=== PATIENT | female | born 2005 | race Caucasian/White ===

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

== ENCOUNTER 2024-11-09 20:18 | Emergency (ER) | payer SELFPAY ==
--- NOTE | ~2024-11-09 | CT_ITS ---
CT of the Abdomen and Pelvis: Indication: Flank pain, fever Technique: 2.5 mm axial scans were obtained through the abdomen and pelvis following intravenous adm inistration of 100 cc of Omnipaque 350. Dose reduction technique was used on this scan by utilizing a utomated exposure control and iterative reconstruction technique. The dose-length product (DLP) was 2 37.56 mGy-cm. Findings: Scans through the lung bases are unremarkable. The liver, spleen, pancreas, gallbladder, adrenals and right kidney are within normal limits. There i s focal decreased parenchymal enhancement of the lower pole the left kidney with mild adjacent perine phric stranding. No evidence of aortic aneurysm. No lymphadenopathy. No bowel obstruction or bowel wall thickening. There is no evidence to suggest acute appendicitis. Images through the pelvis were performed. Urinary bladder unremarkable. No pelvic mass seen. No ascit es. Impression: Findings compatible with pyelonephritis at the lower pole the left kidney. Reviewed, dictated and finalized at location . Impression: Findings compatible with pyelonephritis at the lower pole the left kidney.
--- OUTSIDE RECORDS SUMMARY | 2024-11-09 20:21 | XMS_ITS | Clinical Summary ---
Author Organization [facility] Address [address] [place] [address] Care Team Providers Care Can Closing Machine Tender Name Role Phone Unavailable Primary Care Provider Unavailabl e Source Comments PLEASE NOTE, if this patient is a minor, it may be UNLAWFUL to discuss sensitive information that is contained in these records (such as FAMILY PLANNING, MENTAL HEALTH or SUBSTANCE ABUSE) with the minor patient's parent or other person without the patient's specific authorization.[facility] Allergies No known active allergies Medications clotrimazole 1 % vaginal cream Place 1 Applicator vaginally nightly at bedtime 45 g 3 Active Active Problems No known active problems Social History Tobacco Use Types Packs/Day Years Used Date Smoking Tobacco: Never Smokeless Tobacco: Never Tobacco Cessation:Counseling Given: No Alcohol Use Standard Drinks/Week Comments Never 0 (1 standard drink = 0.6 oz pur e alcohol) Social Connections Answer Date Recorded Connectedness 0 01/09/2024 Financial Resource Strain Answer Date R ecorded Financial Resource Strain 0 2022 Stress Answer Date Recorded Stress 0 12/03/2022 Physical Activity Answer Date Recorded Physical Activity 0 12/03/2022 Food Insecurity Answer Date Recorded Food 0 01/21/2024 Transportation Needs Answer Date Record ed Transportation 0 12/03/2022 Housing Stability Answer Date Recorded Housing 0 12/03/2022 Safety and Environment Answer Date Norberto rded Safety 0 12/03/2022 Utilities Answer Date Recorded Utilities 0 12/03/2022 Employment Answer Date Recorded Stress 0 01/09/2024 Comments No Sex and Gender Information Value Date Recorded Sex Assigned at Not on file Legal Sex Female 9:54 AM PDT Gender Identity Not on file Sexual Orientation Not on file Last Filed Vital Signs Vital Sign Reading Time Taken Comments Blood Pressure 120/76 12/03/2022 9:14 AM CDT Pulse 104 12/03/2022 9:14 AM CDT Temperature 36.9 C (98.4 F) 12/03/2022 9:14 AM CDT Respiratory Rate 18 12/03/2022 9:14 AM CDT Oxygen Saturation 98% 12/03/2022 9:14 AM CDT Inhaled Oxygen Concentration - - Weight 57.4 kg (126 lb 9.6 oz) 12/03/2022 9:14 A M CDT Height 154.9 cm (5' 1) 12/03/2022 9:14 AM CDT Body Mass Index 23.92 12/03/2022 9:14 AM CDT Plan of Treatment Health Maintenance Due Date Last Done Comments Anxiety Screening 2004 Tobacco Screening 2004 Relationship Safety Screening/Counseling 01/18/2019 Chlamydia Screening 12/04/2023 12/03/2022, Gonorrhea Screening 12/04/2023 12/03/2022 [id number] ( season) 2023 Alcohol and Drug Screen 04/27/2024 Depression Annual Screen 04/27/2024 Imm-Influenza (#1) 2024 03/17/2023, 0 07/19/2020, 04/16/2018, Additional history exists Hypertension Screening (#1) 12/02/2025 Imm-DTaP/Tdap/Td (8 - Td or Tdap) 02/17/2033 02/17/2023, 02/02/2014, 06/28/2009, Additional history exists Imm-Hepatitis B Completed 2004, 04/28, 2004, Additional history exists Imm-MMR Completed 06/28/2009, 02/06/2005 Imm-Varicella Completed 06/28/2009, 02/06/2005 Imm-Hepatitis A Completed 11/28/2013, 11/22/2012 Imm-HPV Completed 08/02/2020, 04/16/2018 HIV Screening Completed 12/03/2022 Hepatitis C Screening Completed 12/03/2022 Procedures Procedure Name Priority Date/Time Associated Diagnosis Comments SURESWAB ADVANCED VAGINITIS PLUS, TMA Routine 12/03/2022 9:00 AM CDT care in second trimester HIV 1/2 AG & AB W/RFLX (4TH GEN) Routine 12/03/2022 8:39 AM CDT ACUTE HEPATITIS PANEL W/RFLX Routine 12/03/2022 8:39 AM CDT from Last 3 Months or Most Recently Relevant to Health Maintenance Results * (ABNORMAL) [facility] ADVANCED VAGINITIS PLUS, TMA (BV/DAYNA/TRICH/GONORRHEA/CHLAMYDIA [id number]) (12/03/2022 9:00 AM CDT) [facility](R) ADV BACTERIAL VAGINOSIS (BV), TMA NEGATIVE NEGATIVE 12/04/2022 12:43 PM CDT [facility] AD[facility] SPECIES [facility](A) NOT DETECTED 2022 5:28 PM CDT [facility] DAYNA GLABRATA NOT DETECTED NOT DETECTED 12/04/2022 5:28 PM CDT [facility] TRICHOMONAS VAGINALIS (TV), TMA NOT DETECTED NOT DETECTED 12/04/2022 5:28 PM CDT [facility] CHLAMYDIA TRACHOMATIS RNA, TMA NOT DETECTED NOT DETECTED 12/04/2022 12:59 PM CDT [facility] NEISSERIA GONORRHOEAE RNA, TMA NOT DETECTED NOT DETECTED 12/04/2022 12:59 PM CDT [facility] Swab Vaginal structure / Unknown 12/03/2022 9:00 AM CDT 12/04/2022 5:48 AM CDT [facility] 12/04/2022 5:29 PM CDT . Dayna species C. albicans, C. tropicalis, C. parapsilosis, and/or C. dubliniensis can be detected, but not differentiated, in the Dayna spp. result. For additional information, please refer to https://education.Simpleshow.SCI Solution/faq/JUS715 (This link is being provided for information/ educational purposes only.) [facility] - MICROBIOLOGY AM BULATORY Final Result [facility] [address] [id number] [facility] [address] [place] [phone] * HIV 1/2 AG & AB W/RFLX (4TH GEN) (12/03/2022 8:39 AM CDT) HIV AG/AB, 4TH GEN NON-REACTI VE NON-REACTI VE 12/04/2022 3:40 PM CDT [facility] 12/03/2022 8:39 AM CDT 12/04/2022 2:15 AM CDT Narrative [facility] - 12/04/2022 3:41 PM CDT HIV-1 antigen and HIV-1/HIV-2 antibodies were not detected. There is no laboratory evidence of HIV infection. . PLEASE NOTE: This information has been disclosed to you from records whose confidentiality may be protected by state law. If your state requires such protection, then the state law prohibits you from making any further disclosure of the information without the specific written consent of the person to whom it pertains, or as otherwise permitted by law. A general authorization for the release of medical or other information is NOT sufficient for this purpose. . For additional information please refer to http://education.BlackLocus/faq/MQJ818 (This link is being provided for informational/ educational purposes only.) . . The performance of this assay has not been clinically validated in patients less than 2 years old. . [facility] - BLOOD DRAW Rosy l Result Performing Organization Address [facility]/ZIP Co de Phone Number [facility] [address] [place] [address] [phone] * ACUTE HEPATITIS PANEL W/RFLX (12/03/2022 8:39 AM CDT) HEPATITIS A IGM ANTIBODY NON-REACTI VE NON-REACTI VE 12/04/2022 3:41 PM CDT [facility] HEPATITIS B CORE IGM ANTIBODY NON-REACTI VE NON-REACTI VE 12/04/2022 3:40 PM CDT [facility] HEPATITIS C ANTIBODY NON-REACTI VE NON-REACTI VE 12/04/2022 3:41 PM CDT [facility] HEPATITIS B SURFACE ANTIGEN NON-REACTI VE NON-REACTI VE 12/04/2022 3:41 PM CDT [facility] 12/03/2022 8:39 AM CDT 12/04/2022 2:15 AM CDT Narrative [facility] - 12/05/2022 9:48 AM CDT . HCV antibody was non-reactive. There is no laboratory evidence of HCV infection. . In most cases, no further action is required. However, if recent HCV exposure is suspected, a test for HCV RNA (test code 69079) is suggested. . For additional information please refer to http://InMyRoom.BlackLocus/faq/ZEZ10f3 (This link is being provided for informational/ educational purposes only.) . . For additional information, please refer to http://InMyRoom.BlackLocus/faq/CHN823 (This link is being provided for informational/ educational purposes only.) . . For additional information, please refer to http://InMyRoom.Simpleshow.SCI Solution/faq/PNY412 (This link is being provided for informational/ educational purposes only.) . [facility] - BLOOD DRAW Edit ed Result - Final [facility] [address] [place] [address] [facility] [address] [place] [address] from Last 3 Months or Most Recently Relevant to Health Maintenance
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
--- OUTSIDE RECORDS SUMMARY | 2024-11-09 20:21 | XMS_ITS | Clinical Summary ---
Author Organization [facility] Address [address] [place] [address] Care Team Providers Care Pie Icer Machine Name Role Phone Unknown, Notinfile Unavailable Unavailable Jbo Lane MD Unavailable [phone] Elchayito-Domitila Kennedy MD Unavailable [phone] No, Physician Primary Care Provider [phone] Allergies No known active allergies Medications albuterol HFA (PROVENTIL HFA,VENTOLIN HFA,PROAIR HFA) 90 mcg/actuation inhaler Inhale 2 puffs every 6 (six) hours as needed for wheezing or shortness of breath 1 Inhaler 1 Active vit 54-apxs-wsmtj-d truong 27mg iron- 800 mcg-250 mg capsule [...] # Disposition: Follow up task sent to [facility] scheduling pool. Desires discharge home today. Benign [...] q2 weeks - Pediatric surgery consultation - medicine consultation - Delivery at [facility] Supervision of high-risk , unspecified trimester 2023 Overview (05/04/2023): [facility] RN: Lexi Gonzalez [x] Full [facility] Care; [x] Blue Team Referring Provider: Eric Tavares (never seen, only anatomy scan); had 1 OB visit in [place]- care everywhere [x] Dating Criteria: ZAN= 2T [...] CPAM, FGR [x] CBC/1hr gtt at 24-28wks: 10.831.1, 1hr GTT 76 [x] Flu Shot (Dec-Mar): [...] pill [x] Method of feeding: breast [x] Toolroom Helper: handouts provided [x] PP Depression Discussed: High risk teen in second trimester Anxiety and depression 07/05/2020 Overview (01/14/2023): History of counseling, did not care for the therapist Stopped medication in 2021 Denies history of SI EPDS on 01/13 = 0 Assessment & Plan (07/06/2020 10:31 PM BODY COMPONENT ENGINEER): - continue home fluoxetine Assessment & Plan (07/05/2020 1:19 AM BODY COMPONENT ENGINEER): - continue home fluoxetine Rumination disorder 07/04/2020 Overview (07/05/2020): Added automatically from request for surgery [id number] 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 Menometrorrhagia 04/16/2018 Resolved Problems Problem Noted Date Diagnosed Date Resolved Date growth restriction antepartum 2023 2023 Overview (2023): EFW 8%ile with normal dopplers on 01/13 Plan Abdominal pain 07/05/2020 01/07/2023 Assessment & Plan (07/06/2020 11:27 PM BODY COMPONENT ENGINEER): - regular diet, mIVF - ODT zofran PRN for nausea - Tylenol, Benadryl, NS bolus for pain - Consider re-initiating bowel regimen when vomiting subsides Assessment & Plan (07/05/2020 1:19 AM BODY COMPONENT ENGINEER): - NPO (except meds), mIVF - IV zofran PRN for nausea - oral tylenol, IV benadryl, NS bolus for pain - start oral Prevacid daily - follow up celiac labs Encounters Date Type Department Care Team Description 10/29/2024 10:41 PM CDT - 10/30/2024 12:40 AM CDT Emergency [facility] Emergency Department [address] [place] [address] Discharge Disposition: Left without being seen from Last 3 Months Immunizations Immunization Administration Dates Next Due DTaP [...] 05/16/2023(Deferred: No longer needed - varicella immune),06/28/2009,02/06/2005 Surgical History Surgery Date Site/Laterality Comments CYST REMOVAL EXTERNAL EAR CANAL LESION EXCISION 12/09/2018 Right Benign Neoplasm excision Medical History Medical History Date Comments Seasonal allergies Depression with anxiety Family History Medical History Relation Name Comments Irritable bowel syndrome Mother Crohn's disease Other Relation Name Status Comments Mother Other Social History Tobacco Use Types Packs/Day Years [...] often do you attend chur ch or quaker services? Never 05/15/2023 Do you belong to any clubs o r organizations such as jewish groups, unions, fraternal or athletic groups, or [...] place to sleep or slept in a group home (including now)? No 05/15/2023 Burnham Depression Scale Answer Date Recorded [place] Depression Scale Total 6 06/03/2023 The thought [...] on file Legal Sex Female 3:59 AM BODY COMPONENT ENGINEER Gender Identity Female 04/28/2023 10:40 AM BODY COMPONENT ENGINEER Sexual Orientation Not on file Obstetrics History Para Term AB IAB SAB Ectopic Multiple Livin g Live Births 2 1 1 0 1 1 0 0 0 1 1 Date Outcome GA Total Labor Labor/2nd/3rd Weight Sex Type Anes PTL Sana A1 A5 Name Clin IAB 8w0 d 2023 Term 39w 0d 0h 37m 0h 29m/0h 08m 3.03 kg (6 lb 10.9 oz) M Vagina l Epidur al N Livin g 8 9 Tayli n Towel l Samia Malone MD Complications:None Delivery Location:[facility] ([facility]) Last Filed Vital Signs Vital Sign Reading [...] 07/26/2023 11:41 AM CDT Plan of Treatment Health Maintenance Due Date Last Done Comments Meningococcal B Vaccine (2 o f 2 - Bexsero SCDM 2-dose series) 02/01/2021 08/02/2020 Chlamydia and Gonorrhea (GC/ CT) Screening 07/05/2021 07/05/2020 Regular Well Visit/Exam 18-64 01/18/2022 Depression Screening 06/03/2024 06/03/2023 Influenza Vaccine (#1) 2024 3, 07/19/2020, 04/16/2018, Additional history exists DTaP/Tdap/Td Vaccine (8 - Td or Tdap) 02/17/2033 02/17/2023, 02/02/2014, 06/28/2009, Additional history exists Hepatitis B Screening Completed 2004 , 2004, 2004, Additional history exists Pneumococcal vaccine <65 Completed 005, 02/06/2005, 2004, Additional history exists Varicella Vaccines Completed 06/28/2009, 02/06/2005 HPV Vaccines Completed 08/02/2020, 04/16/2018 Meningococcal Vaccine Completed 08/02/2020 , 11/06/2015, 11/06/2015 Hepatitis C Screening Completed 12/04/2022 Procedures Procedure Name Priority Date/Time Associated Diagnosis Comments HEPATITIS C ANTIBODY Routine 12/04/2022 N. GONORRHOEAE/C. TRACHOMATIS AMPLIFICATION Routine 07/05/2020 1:32 AM BODY COMPONENT ENGINEER from Last 3 Months or Most Recently Relevant to Health Maintenance Results * Hepatitis C antibody Blood (12/04/2022) SCRIBED HCV ab Nonreactive Blood Aco Historical Provider MD LAB MICROBIOLOGY - [facility] ORDERABLES Final Result * N. gonorrhoeae/C. trachomatis Amplification Urine (07/05/2020 1:32 AM BODY COMPONENT ENGINEER) C. trachomatis Not Detected Not Detected [facility] Comment:Testing performed by : [facility], [address] [facility], [place]., [address] N. gonorrhoeae Not Detected Not Detected [facility] Comment: Interpretive Data Testing performed by the [facility]. This assay detects Chlamydia trachomatis and [...] last revised on 2018. Testing performed by: [facility], [address] [facility], [place]., [address] Urine (None) 07/05/2020 1:32 AM BODY COMPONENT ENGINEER 07/05/2020 2:46 AM BODY COMPONENT ENGINEER No Gary MD LAB MICROBIOLOGY - GEN ERAL ORDERABLES Final Result [facility] Department [place] [address] from Last 3 Months or Most Recently Relevant to Health Maintenance Insurance [address] [place] [id number] [facility] Member Subscriber Plan / Payer (Ef fective 2023-Present) Name:Gabriela Garber Marylu Relation to Subscriber:Self Name:Gabriela Garber Marylu Payer ID:[id number] (NAIC) Group ID:Not on file Type:MEDICAID RISK OTHER Address: [facility] [id number] [place] [id number] [facility] AETNA [facility] IDPA Advance Directives For more information, please contact: [phone] * Full Code (Latest Code Status on [...] 2:17 AM 07/06/2020 1:32 AM Care Teams Pie Icer Machine Relationship Specialty Start Date End Date No, Physician PCP - General 04/30/23 Unknown, Notinfile 08/18/[address] MD Referring Physician Pediatrics 12/30/17 Domitila Crenshaw MD [address] [place] [id number] Referring Physician Family Medicine 07/04/20
--- OUTSIDE RECORDS SUMMARY | 2024-11-09 20:21 | XMS_ITS | Clinical Summary ---
Author Organization [facility] Address [address] [place] [address] Care Team Providers Care Flatwork Supervisor Name Role Phone Unavailable Primary Care Provider Unavailabl e Source Comments [facility],non-owned Affiliates and Associated Physician Practices is amultiple site organization consisting of ambulatory clinics and hospital sitesin [place], [place], [place]. This disclosure is being madepursuant to the Care Everywhere program and may not contain all information available regarding this patient. Last updated 18.[facility] [place] Allergies No known active allergies Medications * Be aware that medications may not be up to date on this document. Alwaysverify current medications with the patient. No known medications Active Problems No known active problems Social History Tobacco Use Types Packs/Day Years Used Date Smoking Tobacco: Passive Smo ke Exposure - Never Smoker Smokeless Tobacco: Never Alcohol Use Standard Drinks/Week Comments No 0 (1 standard drink = 0.6 oz pur e alcohol) Comments Unknown Sex and Gender Information Value Date Recorded Sex Assigned at Not on file Legal Sex Female 2:48 PM CARD LACER Gender Identity Not on file Sexual Orientation Not on file Last Filed Vital Signs Vital Sign Reading Time Taken Comments Blood Pressure 111/67 05/21/2024 3:39 AM CARD LACER Pulse 119 05/21/2024 3:38 AM CARD LACER Temperature 36.7 C (98.1 F) 05/21/2024 3:38 AM CARD LACER Respiratory Rate - - Oxygen Saturation 96% 05/21/2024 3:38 AM CARD LACER Inhaled Oxygen Concentration - - Weight 64.4 kg (142 lb) 05/09/2018 3:54 PM CARD LACER Height 158.8 cm (5' 2.5) 05/09/2018 3:54 PM CARD LACER Body Mass Index 25.56 05/09/2018 3:54 PM CARD LACER Plan of Treatment Health Maintenance Due Date Last Done Comments HPV VACCINE (1 - 3-dose series) 01/18/2019 MENINGOCOCCAL (Group B) VACCINE SHARED DECISION-MAKING (1 of 2 - Standard) 2020 DTAP/TDAP/TD VACCINES (1 - Tdap) 01/18/2023 HEPATITIS B VACCINE (1 of 3 - 19+ 3-dose series) 01/18/2023 COVID-19 VACCINE (1 - season) 2023 DEPRESSION SCREENING 04/27/2024 CHLAMYDIA/GONORRHEA SCREENING 11/29/2024 11/30/2023 INFLUENZA VACCINE (#1) 2024 , 07/19/2020, 04/16/2018, Additional history exists ZOSTER VACCINE (1 of 2) 01/18/2054 HEPATITIS C SCREENING Completed 12/03/2022 HIV SCREENING Completed 12/03/2022 HIB VACCINE Aged Out No longer eligi ble based on patient's age to complete this topic MENINGOCOCCAL GROUPS A/C/Y/W VACCINE Aged Out No longer eligible based on patient's age to complete this topic PNEUMOCOCCAL VACCINE Aged Out No long er eligible based on patient's age to complete this topic Insurance [facility] [place] [address] MEDICAID [facility] ANTHEM
--- OUTSIDE RECORDS SUMMARY | 2024-11-09 20:21 | XMS_ITS | Clinical Summary ---
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 Family History Medical History Relation Name Comments No Known Problems Father No Known Problems Mother Relation Name Status Comments Father Alive Mother Alive Social History Tobacco Use Types Packs/Day Years Used Date Smoking Tobacco: Never Smokeless Tobacco: Never Alcohol Use Standard Drinks/Week Comments Never 0 (1 standard drink = 0.6 oz pur e alcohol) AUDIT-C Answer Date Recorded Frequency of Alcohol Consumption Never 10/07/2018 Average Number of Drinks Not on file 019 Frequency of Binge Drinking Not on file 09/25 Comments Unknown Sex and Gender Information Value Date Recorded Sex Assigned at Not on file Legal Sex Female 12:09 AM CDT Gender Identity Not on file Sexual Orientation Not on file Last Filed Vital Signs Vital Sign Reading Time Taken Comments Blood Pressure 103/75 07/31/2022 7:22 PM CDT Pulse 96 07/31/2022 7:22 PM CDT Temperature 36.7 C (98.1 F) 07/31/2022 7:22 PM CDT Respiratory Rate 18 07/31/2022 7:22 PM CDT Oxygen Saturation 100% 07/31/2022 7:22 PM CDT Inhaled Oxygen Concentration - - Weight 54.4 kg (120 lb) 07/31/2022 7:22 PM CDT Height 157.5 cm (5' 2) 07/31/2022 7:22 PM CDT Body Mass Index 21.95 07/31/2022 7:22 PM CDT Plan of Treatment Health Maintenance Due Date Last Done Comments Hepatitis C Virus (HCV) Screening 2004 Meningococcal B Immunization (2 of 2 - Bexsero SCDM 2-dose series) 02/01/2021 08/02/2020 SARS-COV-2 Immunization ( - season) 2023 Influenza Immunization (#1) 12/26/202403/28, 03/30/2017, 03/30/2017, Additional history exists Respiratory Syncytial Virus (RSV) Immunization (Adult) (1 - 1-dose 75+ series) 01/18/2079 Hepatitis B Immunization Completed 005, 2004, 2004, Additional history exists Pneumococcal Immunization Combined Aged Out 02/06/2005, 02/06/2005, 2004, Additional history exists No longer eligible based on patient's age to complete this topic Measles Mumps Rubella (MMR) Immunization Discontinued 06/28/2009, 02/06/2005 Polio (IPV) Immunization Discontinued 010, 06/28/2009, 2004, Additional history exists Varicella Immunization Discontinued 06/28/2009, 2004 Hepatitis A Immunization Discontinued 014, 11/28/2013, 11/22/2012, Additional history exists DTaP/Tdap/Td Immunization Discontinued 2013, 06/28/2009, 06/28/2009, Additional history exists TdaP Immunization Completed 02/02/2014 Human Papillomavirus (HPV) Immunization Completed 08/02/2020, 04/16/2018 Meningococcal Immunization (ACWY) Completed 08/02/2020, 11/06/2015, 11/06/2015 Rotavirus Immunization Aged Out No lo nger eligible based on patient's age to complete this topic Care Teams Geriatric Case Manager Relationship Specialty Start Date End Date Provider, None [place] PCP - General 08/22/21
[2024-11-09 20:36] VITALS: BP 91/65; PULSE 106; RESP 17; TEMP 39; O2SAT 100
[2024-11-09 22:33] VITALS: TEMP 38.7
--- NOTE | 2024-11-10 01:02 | PC.NURSE ---
Pt presents to ED c/o 01/04 throbbing headache, and elevated temp, onset 6pm. Pt states she took tylenol 1000 at 1800 yesterday with no relief. Pt placed on cardiac rn and cont. pulse oximeter. Pt temp 100.6 oral, and slightly tachycardiac
[2024-11-10 01:04] VITALS: BP 123/68; PULSE 94; RESP 13; TEMP 38.1; O2SAT 100
--- OUTSIDE RECORDS SUMMARY | 2024-11-10 01:30 | XMS_ITS | Clinical Summary ---
Author Organization [facility] Address [address] [place] [address] Care Team Providers Care Security Architect Name Role Phone Unknown, Notinfile Unavailable Unavailable Job Lane MD Unavailable [phone] Elchayito-Domitila Kennedy MD Unavailable [phone] No, Physician Primary Care Provider [phone] Allergies No known active allergies Medications albuterol HFA (PROVENTIL HFA,VENTOLIN HFA,PROAIR HFA) 90 mcg/actuation inhaler Inhale 2 puffs every 6 (six) hours as needed for wheezing or shortness of breath 1 Inhaler 1 Active vit 40-dqep-cqiug-d truong 27mg iron- 800 mcg-250 mg capsule [...] # Disposition: Follow up task sent to [facility] scheduling pool. Desires discharge home today. [...] consultation - medicine consultation - Delivery at [facility] Supervision of high-risk , unspecified trimester 2023 Overview (05/04/2023): [facility] RN: Lexi Gonzalez [x] Full [facility] Care; [x] Blue Team Referring Provider: [...] pill [x] Method of feeding: breast [x] Cloth Packer: handouts provided [x] PP Depression Discussed: High risk teen in second trimester Anxiety and depression 07/05/2020 Overview (01/14/2023): History of counseling, did not care for the therapist Stopped medication in 2021 Denies history of SI EPDS on 01/13 = 0 Assessment & Plan (07/06/2020 10:31 PM FRONT DESK TEAM MEMBER): - continue home fluoxetine Assessment & Plan (07/05/2020 1:19 AM FRONT DESK TEAM MEMBER): - continue home fluoxetine Rumination disorder 07/04/2020 Overview (07/05/2020): Added automatically from request for surgery [id number] 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 Menometrorrhagia 04/16/2018 Resolved Problems Problem Noted Date Diagnosed Date Resolved Date growth restriction antepartum 2023 2023 Overview (2023): EFW 8%ile with normal dopplers on 01/13 Plan Abdominal pain 07/05/2020 01/07/2023 Assessment & Plan (07/06/2020 11:27 PM FRONT DESK TEAM MEMBER): - regular diet, mIVF - ODT zofran PRN for nausea - Tylenol, Benadryl, NS bolus for pain - Consider re-initiating bowel regimen when vomiting subsides Assessment & Plan (07/05/2020 1:19 AM FRONT DESK TEAM MEMBER): - NPO (except meds), mIVF - IV zofran PRN for nausea - oral tylenol, IV benadryl, NS bolus for pain - start oral Prevacid daily - follow up celiac labs Encounters Date Type Department Care Team Description 10/29/2024 10:41 PM CDT - 10/30/2024 12:40 AM CDT Emergency [facility] Emergency Department [address] [place] [address] Discharge Disposition: Left without being seen from [...] often do you attend chur ch or roman catholic services? Never 05/15/2023 Do you belong to any clubs o r organizations such as shinto groups, unions, fraternal or athletic groups, or [...] place to sleep or slept in a intermediate (including now)? No 05/15/2023 [place] Depression Scale Answer Date Recorded [place] Depression Scale Total 6 06/03/2023 The thought [...] on file Legal Sex Female 3:59 AM FRONT DESK TEAM MEMBER Gender Identity Female 04/28/2023 10:40 AM FRONT DESK TEAM MEMBER Sexual Orientation Not on file Obstetrics History [...] Towel l Samia Malone MD Complications:None Delivery Location:[facility] C ampus ([facility] 58LD) Last Filed Vital Signs Vital Sign [...] GONORRHOEAE/C. TRACHOMATIS AMPLIFICATION Routine 07/05/2020 1:32 AM FRONT DESK TEAM MEMBER from Last 3 Months or Most Recently Relevant to Health Maintenance Results * Hepatitis C antibody Blood (12/04/2022) SCRIBED HCV ab Nonreactive Blood Aco Historical Provider MD LAB MICROBIOLOGY - [facility] ORDERABLES Final Result * N. gonorrhoeae/C. trachomatis Amplification Urine (07/05/2020 1:32 AM FRONT DESK TEAM MEMBER) C. trachomatis Not Detected Not Detected [facility] Comment:Testing performed by : [facility], [address] [facility] [place] [facility], [place]., [address] N. gonorrhoeae Not Detected Not Detected [facility] Comment: Interpretive Data Testing performed by the [facility]. This assay detects Chlamydia trachomatis and [...] last revised on 2018. Testing performed by: [facility], [address] [facility] [place] [facility], [place]., [address] Urine (None) 07/05/2020 1:32 AM FRONT DESK TEAM MEMBER 07/05/2020 2:46 AM FRONT DESK TEAM MEMBER No Gary MD LAB MICROBIOLOGY - [facility] ORDERABLES Final Result [facility] Department [place] [address] from Last 3 Months or Most Recently Relevant to Health Maintenance Insurance [address] [place] [address] [facility] Member Subscriber Plan / Payer (Ef fective 2023-Present) Name:Gabreila Garber Marylu Relation to Subscriber:Self Name:Gabriela Garber Marylu Payer ID:[id number] (NAIC) Group ID:Not on file Type:MEDICAID RISK OTHER Address: [facility] [id number] [place] [address] [facility] AETNA [facility] IDPA Advance Directives For more information, please contact: [phone] * Full Code (Latest Code Status on [...] 2:17 AM 07/06/2020 1:32 AM Care Teams Security Architect Relationship Specialty Start Date End Date No, Physician PCP - General 04/30/23 Unknown, Notinfile 08/18/[address] MD Referring Physician Pediatrics 12/30/17 Domitila Crenshaw MD [address] [place] [id number] Referring Physician Family Medicine 07/04/20
--- OUTSIDE RECORDS SUMMARY | 2024-11-10 01:30 | XMS_ITS | Clinical Summary ---
Author Organization [facility] Address [address] [place] [address] Care Team Providers Care Dynamite Packing Machine Operator Name Role Phone Unavailable Primary Care Provider Unavailabl e Source Comments [facility],non-owned Affiliates and Associated Physician Practices is amultiple site organization consisting of ambulatory clinics and hospital sitesin [place], [place], [place] and [place]. This disclosure is being madepursuant to the Care Everywhere program and may not contain all information available regarding this patient. Last updated 18.[facility] [employer] Allergies No known active allergies Medications * [...] on file Legal Sex Female 2:48 PM CONSUMER LOAN UNDERWRITER Gender Identity Not on file Sexual Orientation Not on file Last Filed Vital Signs Vital Sign Reading Time Taken Comments Blood Pressure 111/67 05/21/2024 3:39 AM CONSUMER LOAN UNDERWRITER Pulse 119 05/21/2024 3:38 AM CONSUMER LOAN UNDERWRITER Temperature 36.7 C (98.1 F) 05/21/2024 3:38 AM CONSUMER LOAN UNDERWRITER Respiratory Rate - - Oxygen Saturation 96% 05/21/2024 3:38 AM CONSUMER LOAN UNDERWRITER Inhaled Oxygen Concentration - - Weight 64.4 kg (142 lb) 05/09/2018 3:54 PM CONSUMER LOAN UNDERWRITER Height 158.8 cm (5' 2.5) 05/09/2018 3:54 PM CONSUMER LOAN UNDERWRITER Body Mass Index 25.56 05/09/2018 3:54 PM CONSUMER LOAN UNDERWRITER Plan of Treatment Health Maintenance Due Date [...] patient's age to complete this topic Insurance [facility] [place] [address] [place] [address] [facility] ANTHEM
--- OUTSIDE RECORDS SUMMARY | 2024-11-10 01:30 | XMS_ITS | Clinical Summary ---
Author Organization [facility] Address [address] [place] [address] Phone Care Team Providers Care Fluid Dynamicist Name Role Phone Provider, None Primary Care [...] age to complete this topic Care Teams Fluid Dynamicist Relationship Specialty Start Date End Date Provider, None [place] PCP - General 08/22/21
--- OUTSIDE RECORDS SUMMARY | 2024-11-10 01:30 | XMS_ITS | Referral Summary ---
Author Organization [facility] Address [address] [place] [address] Care Team Providers Care Channel Executive Name Role Phone Unknown, Notinfile Unavailable Unavailable Job Lane MD Unavailable Domitila Crenshaw MD Unavailable [phone] No, Physician Primary Care Provider Encounters Date Type Department Care Team Description 10/29/2024 10:41 PM CDT - 10/30/2024 12:40 AM CDT Emergency [facility] Emergency Department [address] [place] [address] Discharge Disposition: Left without being seen from Last 3 Months Allergies No known active allergies Medications albuterol HFA (PROVENTIL HFA,VENTOLIN HFA,PROAIR HFA) 90 mcg/actuation inhaler Inhale 2 puffs every 6 (six) hours as needed for wheezing or shortness of breath 1 Inhaler 1 Active vit 83-nlau-mzsol-d truong 27mg iron- 800 mcg-250 mg capsule [...] # Disposition: Follow up task sent to [facility] scheduling pool. Desires discharge home today. [...] q2 weeks - Pediatric surgery consultation - Tad medicine consultation - Delivery at [facility] Supervision of high-risk , unspecified trimester 2023 Overview (05/04/2023): [facility] RN: Lexi Gonzalez [x] Full [facility] Care; [x] Blue Team Referring Provider: Eric Tavares (never seen, only anatomy scan); had 1 OB visit in [place]- care everywhere [x] Dating Criteria: ZAN= 2T [...] pill [x] Method of feeding: breast [x] Fisheries Inspector: handouts provided [x] PP Depression Discussed: High risk teen in second trimester Anxiety and depression 07/05/2020 Overview (01/14/2023): History of counseling, did not care for the therapist Stopped medication in 2021 Denies history of SI EPDS on 01/13 = 0 Assessment & Plan (07/06/2020 10:31 PM FIRE RANGER): - continue home fluoxetine Assessment & Plan (07/05/2020 1:19 AM FIRE RANGER): - continue home fluoxetine Rumination disorder 07/04/2020 Overview (07/05/2020): Added automatically from request for surgery [id number] 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 Never 05/15/2023 Do you belong to any clubs o r organizations such as druze groups, unions, fraternal or athletic groups, or [...] place to sleep or slept in a fci (including now)? No 05/15/2023 [place] Depression Scale Answer Date Recorded [place] Depression Scale Total 6 06/03/2023 The thought [...] on file Legal Sex Female 3:59 AM FIRE RANGER Gender Identity Female 04/28/2023 10:40 AM FIRE RANGER Sexual Orientation Not on file Last Filed [...] GONORRHOEAE/C. TRACHOMATIS AMPLIFICATION Routine 07/05/2020 1:32 AM FIRE RANGER from Last 3 Months or Most Recently Relevant to Health Maintenance Results * Hepatitis C antibody Blood (12/04/2022) SCRIBED HCV ab Nonreactive Blood Aco Historical Provider LAB MICROBIOLOGY - [facility] ORDERABLES Final Result * N. gonorrhoeae/C. trachomatis Amplification Urine (07/05/2020 1:32 AM FIRE RANGER) C. trachomatis Not Detected Not Detected [facility] Comment:Testing performed by : [facility], [address] [facility] [place]., [address] N. gonorrhoeae Not Detected Not Detected [facility] Comment: Interpretive Data Testing performed by the [facility]. This assay detects Chlamydia trachomatis and [...] last revised on 2018. Testing performed by: [facility], [address] [place]., [address] Urine (None) 07/05/2020 1:32 AM FIRE RANGER 07/05/2020 2:46 AM FIRE RANGER us No Gary MD LAB MICROBIOLOGY - GEN ERAL ORDERABLES Final Result [facility] Department [place] [address] from Last 3 Months or Most Recently Relevant to Health Maintenance Insurance [address] [place] [address] [facility] [place] [address] [place] [address] [employer]ETNA [facility]TER [facility] AETNA [employer]TER [facility] [place] Advance Directives For more information, please contact: [phone] * Full Code (Latest Code Status on [...] 2:17 AM 07/06/2020 1:32 AM Care Teams Channel Executive Relationship Specialty Start Date End Date No, Physician PCP - General 04/30/23 Unknown, Notinfile 08/18/[address] MD Referring Physician Pediatrics 12/30/17 Domitila Crenshaw MD [address] [place] [id number] Referring Physician Family Medicine 07/04/20
--- OUTSIDE RECORDS SUMMARY | 2024-11-10 01:30 | XMS_ITS | Clinical Summary ---
Author Organization [facility] [address] Address [address] [place] [address] Care Team Providers Care Bait Maker Name Role Phone Unavailable Primary Care Provider Unavailabl e Allergies No known active allergies Medications fluticasone propionate (FLONASE) 50 mcg/spray [place], Suspension nasal inhaler Administer 2 Sprays in each nostril daily. 16 Gram 1 9 Active cetirizine (ZyrTEC) 10 mg tablet Take 1 Tablet (10 mg) by mouth daily. 30 Tablet 9 Active doxylamine (Sleep Aid, Doxylamine,) 25 mg Tablet Take 0.5 Tablets (12.5 mg) by mouth nightly as needed for sleep. 30 Tablet 3 04/16/2023 2:52 PM RN SUPPORT SERVICES 3 Active metroNIDAZOLE (FLAGYL) 500 mg tablet Take 1 tablet (500 mg total) by mouth 2 (two) times a day for 7 days 14 Tablet 06/03/2023 4:00 PM RN SUPPORT SERVICES 4 Active nitrofurantoin (Macrobid) 100 mg capsule Take 1 Capsule (100 mg) by mouth 2 times daily. 14 Capsule 06/29/2023 10:18 AM RN SUPPORT SERVICES 4 Active Active Problems Problem Noted Date Diagnosed Date Menometrorrhagia 04/16/2018 Immunizations Immunization Administration Dates Next Due (ADACEL/BOOSTRIX)(10 YR UP) TDAP VACCINE, 0.5ML, IM 02/02/2014 (GARDASIL 9)(9-45 YRS) HUMAN PAPILLOMAVIRUS VACCINE, TYPES 6, 11, 16, 18, 31, 33, 45, 52, 58, NONAVALENT (9VHPV), 2 OR 3 DOSE, IM 04/16/2018 (INFANRIX)(6 WKS-6 YRS) DIPT HERIA, TETANUS TOXOIDS, AND ACCELLULAR PERTUSSIS VACCINE (DTAP), 0.5 ML IM 06/28/2009,09/11/2005,2004,05/21,2004 (IPOL)(6 WKS AND UP) POLIOVI GENE VACCINE, INACTIVATED (IPV), 3 DOSE, SUBCUT OR IM 06/28/2009,2004,2004,03/26 (M-M-R II/PRIORIX)(12 MO UP) MEASLES, MUMPS AND RUBELLA VIRUS VACCINE, 0.5 ML IM/SUBCUT 06/28/2009,02/06/2005 (VARIVAX)(12 MOS UP)VARICELL A VIRUS VACCINE (PF) 0.5 ML, SUB CUT 06/28/2009,02/06/2005 HIB, Unspecified Formulation 09/11/2005, 2004,2004,03/26 Hepatitis A Vaccine 11/28/2013,11/22/2012 Hepatitis B Vaccine 2004, 5,2004,01/18 INFLUENZA VACCINE QUADRIVALE NT 6 MOS UP IM 04/16/2018 Influenza Seasonal Unspecifi ed Formulation IM 03/30/2017,02/02/2014,03/13/2005,02/06 Meningococcal ACWY Vaccine, Unspecified Formulation 11/06/2015 PREVNAR (PCV13) pneumococcal 13-valent conjugate Vaccine 02/06/2005,2004,2004,03/26 Family History Medical History Relation Name Comments Healthy Brother Healthy Father Healthy Maternal Grandfather Healthy Maternal Grandmother Healthy Mother Healthy Paternal Grandfather Healthy Paternal Grandmother Healthy Sister Relation Name Status Comments Brother Alive Father Alive Maternal Grandfather Alive Maternal Grandmother Alive Mother Alive Paternal Grandfather Alive Paternal Grandmother Alive Sister Alive Social History Tobacco Use Types Packs/Day Years Used Date Smoking Tobacco: Every Day Cigarettes Smokeless Tobacco: Never Alcohol Use Standard Drinks/Week Comments No 0 (1 standard drink = 0.6 oz pur e alcohol) Comments No Sex and Gender Information Value Date Recorded Sex Assigned at Not on file Legal Sex Female 10:58 AM RN SUPPORT SERVICES Gender Identity Not on file Sexual Orientation Not on file Last Filed Vital Signs Vital Sign Reading Time Taken Comments Blood Pressure 109/71 12/16/2023 1:17 PM CDT Pulse 117 12/16/2023 1:17 PM CDT Temperature 37.1 C (98.8 F) 12/16/2023 1:17 PM CDT Respiratory Rate 18 12/16/2023 1:17 PM CDT Oxygen Saturation 98% 12/16/2023 1:17 PM CDT Inhaled Oxygen Concentration - - Weight 63.5 kg (140 lb) 12/16/2023 1:17 PM CDT Height 157.5 cm (5' 2) 12/16/2023 1:17 PM CDT Body Mass Index 25.61 12/16/2023 1:17 PM CDT Plan of Treatment Health Maintenance Due Date Last Done Comments CHLAMYDIA SCREENING (ANNUAL) 11-24 YEARS 01/18/2015 INFLUENZA VACCINE (#1) 2024 , 07/19/2020, 04/16/2018, Additional history exists DTAP/TDAP/TD VACCINES (8 - T d or Tdap) 02/17/2033 02/17/2023, 02/02/2014, 06/28/2009, Additional history exists HEPATITIS B VACCINES Completed 2004, 2004, 2004, Additional history exists HPV VACCINES Completed 08/02/2020, 04/16/2018 Insurance [address] [id number] [facility] MEDICAID [address] [id number] [address] [id number] [employer] (INTERNAL) [facility] [address] [place] [address] [facility] MEDICAID
--- OUTSIDE RECORDS SUMMARY | 2024-11-10 01:30 | XMS_ITS | Clinical Summary ---
Author Organization [facility] Address [address] [place] [address] Care Team Providers Care Home Aide Name Role Phone Unavailable Primary Care Provider [...] Screening 12/04/2023 12/03/2022, Gonorrhea Screening 12/04/2023 12/03/2022 [id number] ( season) 2023 Alcohol and Drug Screen [...] Relevant to Health Maintenance Results * (ABNORMAL) [facility] ADVANCED VAGINITIS PLUS, TMA (BV/DAYNA/TRICH/GONORRHEA/CHLAMYDIA 02307) (12/03/2022 9:00 AM CDT) [facility](R) ADV BACTERIAL VAGINOSIS (BV), TMA NEGATIVE NEGATIVE 12/04/2022 12:43 PM CDT [facility] DAYNA SPECIES DETECTED(A) NOT DETECTED 2022 5:28 PM CDT [facility] DAYNA GLABRATA NOT DETECTED NOT DETECTED 12/04/2022 5:28 PM CDT [facility] TRICHOMONAS VAGINALIS (TV), TMA NOT DETECTED NOT DETECTED 12/04/2022 5:28 PM CDT [facility] CHLAMYDIA TRACHOMATIS RNA, TMA NOT DETECTED NOT DETECTED 12/04/2022 12:59 PM CDT [facility] NEISSERIA GONORRHOEAE RNA, TMA NOT DETECTED NOT DETECTED 12/04/2022 12:59 PM CDT [facility] Swab Vaginal structure / Unknown 12/03/2022 9:00 AM CDT 12/04/2022 5:48 AM CDT [facility] 12/04/2022 5:29 PM CDT . Dayna species C. albicans, C. tropicalis, C. parapsilosis, and/or C. dubliniensis can be detected, but not differentiated, in the Dayna spp. result. For additional information, please refer to https://education.Acacia.OpenLogic/faq/OUH612 (This link is being provided for information/ educational purposes only.) [facility] - MICROBIOLOGY AM BULATORY Final Result [facility] [address] [id number] [facility] [address] [place] [id number] * HIV 1/2 AG & AB W/RFLX (4TH GEN) (12/03/2022 8:39 AM CDT) HIV AG/AB, 4TH GEN NON-REACTI VE NON-REACTI VE 12/04/2022 3:40 PM CDT [facility] 12/03/2022 8:39 AM CDT 12/04/2022 2:15 AM CDT Narrative [facility] - 12/04/2022 3:41 PM CDT HIV-1 antigen [...] . For additional information please refer to http://education.[facility]/faq/FAY623 (This link is being provided for informational/ educational purposes only.) . . The performance of this assay has not been clinically validated in patients less than 2 years old. . [facility] - BLOOD DRAW Rosy l Result Performing Organization Address [facility]/ZIP Co de Phone Number [facility] [address] [place] [id number] [phone] * ACUTE HEPATITIS PANEL W/RFLX (12/03/2022 8:39 AM CDT) HEPATITIS A IGM ANTIBODY NON-REACTI VE NON-REACTI VE 12/04/2022 3:41 PM CDT [facility] HEPATITIS B CORE IGM ANTIBODY NON-REACTI VE NON-REACTI VE 12/04/2022 3:40 PM CDT [facility] HEPATITIS C ANTIBODY NON-REACTI VE NON-REACTI VE 12/04/2022 3:41 PM CDT [facility] HEPATITIS B SURFACE ANTIGEN NON-REACTI VE NON-REACTI VE 12/04/2022 3:41 PM CDT [facility] 12/03/2022 8:39 AM CDT 12/04/2022 2:15 AM CDT Narrative [facility] - 12/05/2022 9:48 AM CDT . HCV antibody was non-reactive. There is no laboratory evidence of HCV infection. . In most cases, no further action is required. However, if recent HCV exposure is suspected, a test for HCV RNA (test code 51305) is suggested. . For additional information please refer to http://Flat.to.[employer]/faq/BKP03j5 (This link is being provided for informational/ educational purposes only.) . . For additional information, please refer to http://Flat.to.[employer] [employer]/faq/XWD805 (This link is being provided for informational/ educational purposes only.) . . For additional information, please refer to http://Flat.to.Acacia.OpenLogic/faq/IAB835 (This link is being provided for informational/ educational purposes only.) . [facility] BLOOD DRAW Edit ed Result - Final [facility] [address] [place] [address] [facility] [address] [place] [address] from Last 3 Months or Most Recently Relevant to Health Maintenance
[2024-11-10 01:44] LABS: BEDSIDEPREGUCG Negative (Negative)
[2024-11-10] MEDS: ACETAMINOPHEN 500 MG TABLET 1000 MG PO (01:46)
--- NOTE | 2024-11-10 02:03 | ED_ITS ---
HPI - Fever General Chief Complaint: Fever Stated Complaint: fever, body aches Time Seen by Provider: 11/10/24 01:23 History of Present Illness HPI Narrative: 19-year-old otherwise healthy female presenting to the emergency department with fever and body aches as well as lower left flank abdominal pain. Symptoms have been going on since yesterday and into this morning. She took Tylenol around 530 in the evening with some improvement. She states she has been having lower left flank pain and also had a fall about 2 weeks ago on that same side with some bruising. Been doing well for last few weeks but for last 2 days has been having fevers. Denies any urinary complaints or chance of . No nausea but did vomit from pain earlier today. No dysuria, hematuria, chest pain, shortness a breath. No cough or sick contacts. Was otherwise in her normal state of health. Related Data Allergies Allergy/AdvReac Type Severity Reaction Status Date / Time No Known Allergies Allergy Verified 11/09/24 20:19 Review of Systems 2 Review of Systems: As reviewed above in [facility] Social History Social History Smoking status: Never smoker Alcohol intake: never Substance use: never Occupation/Education: student Gender identity (if verbalized by the patient): Female Exam 2 Narrative: GENERAL: [Well-appearing, well-nourished, and in no acute distress.] HEAD: [Normocephalic, atraumatic.] EYES: [PERRLA and EOMI.] ENT: Nares clear, no rhinorrhea or epistaxis. Mucous membranes moist. NECK: Supple. CHEST: [Clear to auscultation. No respiratory distress.] HEART: [Regular rate and rhythm]. No murmur heard. [Normal peripheral pulses.] ABDOMEN: [Soft, nondistended], [nontender], [No rigidity or guarding] EXTREMITIES: Normal range of motion. [No edema.] SKIN: Left flank bruising very focal that appears healing and old but otherwise warm and dry extremities with no focal rashes. NEURO: [No focal deficits]. Alert and oriented [x3.] PSYCH: [Normal mood and affect.] Course Vital Signs Vital signs: Vital Signs Temperature 39.0 C H 11/09/24 20:36 Pulse Rate 106 H 11/09/24 20:36 Respiratory Rate 17 11/09/24 20:36 Blood Pressure 91/65 L 11/09/24 20:36 Pulse Oximetry 100 11/09/24 20:36 Oxygen Delivery Room Air 11/09/24 20:36 Temperature 37.6 C 11/10/24 02:32 Pulse Rate 100 11/10/24 02:32 Respiratory Rate 18 11/10/24 02:32 Blood Pressure 95/83 L 11/10/24 02:32 Pulse Oximetry 98 11/10/24 02:32 Oxygen Delivery Room Air 11/09/24 20:36 MDM - Fever MDM Narrative Medical decision making narrative: 19-year-old otherwise healthy female presenting to the emergency department with fever and body aches as well as lower left flank abdominal pain. Symptoms have been going on since yesterday and into this morning. She took Tylenol around 530 in the evening with some improvement. She states she has been having lower left flank pain and also had a fall about 2 weeks ago on that same side with some bruising. Been doing well for last few weeks but for last 2 days has been having fevers. Denies any urinary complaints or chance of . No nausea but did vomit from pain earlier today. No dysuria, hematuria, chest pain, shortness a breath. No cough or sick contacts. Was otherwise in her normal state of health. Patient is overall well-appearing not any acute distress but is febrile here at 39? C. Mildly tachycardic with pulse 106, when she was in triage showed low blood pressure but this resolved upon arrival to the examination room. Vital signs presently 123/68, pulse of 94, 38.1? C, 100% on room air. She does have some left flank pain and did fall and injure herself about 2 weeks ago with some bruising evident in this area. Unlikely related to the fever but given the injury pattern and bruising will evaluate with a CT scan and laboratory assessments. CBC, CMP, urinalysis,, test, viral panel swabs. She was given low-dose morphine and Tylenol and re-evaluated. Workup shows no leukocytosis or anemia. Normal platelet count. Electrolytes are largely unremarkable. Normal renal function, normal glucose, normal LFTs. Urinalysis has florid urinary tract infections signs. Given her fever and back pain a CT scan was ordered this time for further delineation. Viral panel is negative. CT scan shows pyelonephritis of the left kidney consistent with her exam findings and assessments. Patient received Rocephin here in the emergency department as well as fluids and felt significantly improved. Her fever came down with Tylenol. We discussed next steps with the patient and she was amenable to outpatient follow-up and discharged with 2 weeks of antibiotics for pyelonephritis. She was given strict return precautions and PCP follow-up instructions and was safely discharged home. Medical Records Attestation: I reviewed the patient's medical records. Lab Data Attestation: I reviewed the patient's lab results. 11/10/24 01:55 11/10/24 01:55 Labs: Lab Results 11/10/24 11/10/24 11/10/24 Range/Units 01:32 01:40 01:55 WBC 9.2 (4.5-10.0) K/mm3 RBC 4.78 (4.2-5.4) M/mm3 Hgb 13.1 (12.0-15.0) g/dL Hct 39.2 (37.0-47.0) % MCV 82.0 (80-100) fl MCH 27.4 (26-34) pg MCHC 33.4 (32-36) g/dl RDW 12.4 (11.5-14.5) % Plt Count 179 (150-375) k/mm3 MPV 9.1 (7.4-10.4) fl Immature Gran % (Auto) 0.3 (0-0.5) % Neut % (Auto) 76.4 H (45.5-73.1) % Lymph % (Auto) 13.8 L (18.3-44.2) % [place] % (Auto) 8.9 H (2.6-8.5) % Eos % (Auto) 0.3 (0-4.4) % Baso % (Auto) 0.3 (0.2-1.2) % Lymph # (Auto) 1.27 (0.9-3.2) K/mm3 [place] # (Auto) 0.8 H (0.1-0.6) K/mm3 Eos # (Auto) 0.0 (0-0.3) K/mm3 Baso # (Auto) 0.0 (0.0-0.1) K/mm3 Abs Immat Gran (auto) 0.03 (0.00-0.031) K/mm3 Absolute Neuts (auto) 7.0 H (1.3-6.7) K/mm3 Absolute Nucleated RBC 0.000 (0.0-0.012) K/mm3 Nucleated RBC % 0.0 (0.0-0.2) % Sodium 134 L (137-145) mmol/L Potassium 3.3 L (3.4-5.0) mmol/L Chloride 101 (98-107) mmol/L Carbon Dioxide 21 L (22-30) mmol/L Anion Gap 12 (4-12) mmol/L BUN 6 L (7-17) mg/dL Creatinine 0.76 (0.7-1.0) mg/dL Estim Creat Clear Calc 81 ml/min Estimated GFR > 60 (59 - ) Glucose 90 (65-110) mg/dL Calcium 9.2 (8.4-10.2) mg/dL Magnesium 1.7 (1.6-2.3) mg/dL Total Bilirubin 1.2 (0.2-1.3) mg/dL AST 24 (14-36) U/L ALT 12 (6-35) U/L Alkaline Phosphatase 59 (38-126) U/L Total Protein 6.8 (6.3-8.2) g/dL Albumin 4.2 (3.5-5.1) g/dL Urine Color Yellow (Yellow) Urine Appearance Cloudy H (Clear) Urine pH 6.0 (5.0-9.0) Ur Specific [place] 1.012 (1.001-1.035) Urine Protein Trace (Negative) mg/dL Urine Glucose (UA) Negative (Negative) mg/dL Urine Ketones 3+ H (Negative) mg/dL Ur Blood (Man) Trace (Negative) Urine Nitrate Positive H (Negative) Urine Bilirubin Negative (Negative) Urine Urobilinogen 1.0 (<2.0) mg/dL Leukocyte Esterase Rfl 2+ H (Negative) KAMALA/UL Urine RBC 0-2 (0-2) /hpf Urine WBC 51-100 H (0-3) /hpf Ur Squamous Epith Cells Few (Few) /hpf Urine Bacteria 4+ H /hpf Urine Casts 0-2 POC Urine HCG, Qual Negative (Negative) Influenza A (RT-PCR) Negative (Negative) Influenza B (RT-PCR) Negative (Negative) RSV (RT-PCR) Negative (Negative) SARS-CoV-2 RNA (RT-PCR) Negative (Negative) Imaging Data Attestation: I personally reviewed and interpreted this imaging study as follows: My impression: Impressions Abdomen/Pelvis CT 11/10/24 05:53 Impression: Findings compatible with pyelonephritis at the lower pole the left kidney. Discharge Plan Discharge Clinical Impression: Acute bacterial pyelonephritis, Urinary tract infection Patient Disposition: Home Condition: Stable Instructions: Antibiotic Form, Urinary Tract Infection in Women (DC), Kidney Infection (ED) Additional Instructions: You have an upper urinary tract infection in your left kidney which we will treat with a prolonged 2 week course of antibiotics. Take the antibiotics as well as Tylenol and ibuprofen for fever and pain. Return with any emergent concerns otherwise follow-up with a primary care provider. Patient Language: Albanian Prescriptions: New cefdinir 300 mg capsule 300 mg PO Q12H 14 Days Qty: 28 0RF acetaminophen [Tylenol Extra Strength] 500 mg tablet 1,000 mg PO TID PRN (Reason: pain) Qty: 30 0RF ibuprofen 600 mg tablet 600 mg PO TID PRN (Reason: pain) Qty: 20 0RF No Action benzonatate 100 mg capsule 100 mg PO TID PRN (Reason: cough) 7 Days Qty: 20 0RF fluticasone propionate [24 Hour Allergy Relief] 50 mcg/actuation spray,suspension 1 spray intranasal BID Qty: 16 0RF Rx Instructions: administer into each nostril Follow-up/Referrals: Alfonzo Phipps MD [Physician] - 1 Week (Established PCP) PHYSICIAN NOT ON STAFF,NONSTAFF [Primary Care Provider] - Time of Disposition: 06:26
[2024-11-10 02:14] LABS: Hematocrit 39.2 % (37.0-47.0); Hemoglobin 13.1 g/dL (12.0-15.0); Immature Granulocyte Percent A 0.3 % (0-0.5); Lymphocytes Absolute Auto 1.27 K/mm3 (0.9-3.2); Mean Corpuscular HGB Conc 33.4 g/dl (32-36); Mean Corpuscular Hemoglobin 27.4 pg (26-34); Mean Corpuscular Volume 82.0 fl (80-100); Nucleated Red Blood Cells Absolute Auto 0.000 K/mm3 (0.0-0.012); Nucleated Red Blood Cells Perc 0.0 % (0.0-0.2); Platelet Count Result 179 k/mm3 (150-375); Red Blood Count 4.78 M/mm3 (4.2-5.4); White Blood Count 9.2 K/mm3 (4.5-10.0)
[2024-11-10 02:16] LABS: Add Urine Microscopic? YES; Appearance Urine Cloudy (Clear); Glucose Urine UA Negative (Negative); Leukocyte Esterase Ur 2+ LEU/UL (Negative); Nitrate Urine Positive (Negative); Non Pathogenic Casts 0-2; Specific Grav Ur 1.012 (1.001-1.035)
[2024-11-10 02:32] VITALS: BP 95/83; PULSE 100; RESP 18; TEMP 37.6; O2SAT 98
[2024-11-10] MEDS: cefTRIAXone 1 GM in SODIUM CHLORIDE 0.9% IV 50 ML 100 ML IVPB (02:35)
[2024-11-10] MEDS: MORPHINE SULFATE (*CRX) 2 MG/ML INJ IV PUSH (02:36)
[2024-11-10 02:41] LABS: Alanine Aminotransferase 12 U/L (6-35); Albumin Level 4.2 g/dL (3.5-5.1); Alkaline Phosphatase 59 U/L (38-126); Anion Gap 12 mmol/L (4-12); Aspartate Amino Transferase 24 U/L (14-36); Bilirubin,Total 1.2 mg/dL (0.2-1.3); Blood Urea Nitrogen 6 mg/dL (7-17); Calcium 9.2 mg/dL (8.4-10.2); Carbon Dioxide 21 mmol/L (22-30); Chloride 101 mmol/L (98-107); Estimated CRCL calculation 81 ml/min; Estimated Glomerular Filt Rate > 60; Glucose 90 mg/dL (65-110); Magnesium 1.7 mg/dL (1.6-2.3); Potassium 3.3 mmol/L (3.4-5.0); Sodium 134 mmol/L (137-145); Total Protein 6.8 g/dL (6.3-8.2)
[2024-11-10 02:47] LABS: Influenza A QL RT-PCR Negative (Negative); Influenza B QL RT-PCR Negative (Negative); RSV RNA, RT-PCR Negative (Negative); SARS-CoV-2 RNA PCR Negative (Negative)
--- NOTE | 2024-11-10 03:11 | PC.NURSE ---
Pt taken to CT in W/C
[2024-11-10] MEDS: LACTATED RINGERS 1,000 ML 999 ML IV CONT (06:25)
[2024-11-10 06:55] VITALS: BP 106/55; PULSE 73; RESP 16; TEMP 36.5; O2SAT 97
== END 2024-11-10 07:05 | disposition home or self-care (01) ==
PROVIDERS: Emergency Provider Student in an Organized Health Care Education/Training Program
DX: N10 Acute pyelonephritis (principal); B96.89 Other specified bacterial agents as the cause of diseases classified elsewhere; N39.0 Urinary tract infection, site not specified; Z20.822 Contact with and (suspected) exposure to COVID-19
CPT/HCPCS: 36415; 74177; 80053; 81001; 81025; 83735; 85025; 87637; 96361; 96365; 96375; 99284; A9270; J0696; J2270; J7120; Q9967